=== PATIENT | female | born 1980 | race Caucasian/White ===

== ENCOUNTER 2016-12-30 02:23 | Emergency (ER) | payer MEDICARE ==
[2016-12-30 03:22] LABS: HEMOGLOBIN 13.6 gm/dl (12.3-15.3); RED BLOOD COUNT 4.7 M/UL (4.00-5.10); WHITE BLOOD COUNT 8.6 K/UL (4.5-11.0)
[2016-12-30 03:46] LABS: BUN/CREATININE RATIO 14 (0-10)
== END 2016-12-30 06:25 | disposition home or self-care (01) ==
LOC: ER1 02:23
PROVIDERS: Family Medicine
DX: R09.1 Pleurisy (principal); I10 Essential (primary) hypertension; Z90.49 Acquired absence of other specified parts of digestive tract; F17.210 Nicotine dependence, cigarettes, uncomplicated; Z88.0 Allergy status to penicillin; Z88.5 Allergy status to narcotic agent; Z79.899 Other long term (current) drug therapy
CPT/HCPCS: 71010; 80053; 81001; 82550; 82553; 83874; 84484; 84703; 85025; 85379; 93005; 96374; 99285; J2060

== ENCOUNTER 2017-01-18 15:29 | Emergency (ER) | payer MEDICARE ==
[2017-01-18 16:53] LABS: HEMOGLOBIN 13.1 gm/dl (12.3-15.3); RED BLOOD COUNT 4.46 M/UL (4.00-5.10); WHITE BLOOD COUNT 7.6 K/UL (4.5-11.0)
[2017-01-18 17:13] LABS: BUN/CREATININE RATIO 8 (0-10)
== END 2017-01-18 23:18 | disposition home or self-care (01) ==
LOC: ER1 15:29
PROVIDERS: Physician Assistant
DX: R07.89 Other chest pain (principal); F41.9 Anxiety disorder, unspecified; R74.0 Nonspecific elevation of levels of transaminase and lactic acid dehydrogenase [LDH]; I10 Essential (primary) hypertension; F17.200 Nicotine dependence, unspecified, uncomplicated; Z90.49 Acquired absence of other specified parts of digestive tract; Z79.899 Other long term (current) drug therapy
CPT/HCPCS: 36415; 80053; 80307; 81001; 82150; 82550; 82553; 83690; 83874; 84484; 84703; 85025; 85379; 93005; 94664; 96374; 99285; J1885; J7050; Q0177; Q9962

== ENCOUNTER 2017-02-12 21:10 | Emergency (ER) | payer MEDICARE | END 2017-02-12 23:10 | disposition left against medical advice (07) | LOC: ER1 21:10 | DX: Z53.21 Procedure and treatment not carried out due to patient leaving prior to being seen by health care provider (principal) ==